=== PATIENT | female | born 1960 | race Caucasian/White ===

== ENCOUNTER 2022-01-20 10:48 | Emergency (ER) | payer MEDICARE, MEDICAID, SELFPAY ==
[2022-01-20 10:58] VITALS: BP 148/70; PULSE 85; RESP 16; TEMP 36.6; O2SAT 96
--- NOTE | 2022-01-20 12:19 | ED.EYEPROB ---
HPI - Eye Problem General Chief complaint: Eye Problems Stated complaint: right eye Time Seen by Provider: 01/20/22 12:19 Source: patient and RN notes reviewed Mode of arrival: ambulatory Limitations: no limitations History of Present Illness HPI Narrative: 61-year-old female presents with concern for right upper eyelid swelling. She reports symptoms started approximately 5 days ago. She reports drainage from the eye. Reports this has been happening to her since she started chemotherapy and she is been treated by her oncologist with ciprofloxacin. Reports ciprofloxacin clears up the problem within several days. She reports her oncologist advised her to see an help desk intern, reports she is unable to get into an help desk intern for several months. MD chief complaint: other (Eyelid swelling) Related Data Home Medications Medication Instructions Recorded Confirmed alprazolam 0.5 mg tablet 0.5 tablet PO TID 01/20/22 01/20/22 aspirin 81 mg capsule 81 mg PO DAILY 01/20/22 01/20/22 atorvastatin 40 mg tablet 40 tablet PO DAILY 01/20/22 01/20/22 ergocalciferol (vitamin D2) 50,000 1 unit PO WEEKLY 01/20/22 01/20/22 unit tablet ferrous sulfate 325 mg (65 mg 325 mg PO DAILY 01/20/22 01/20/22 iron) tablet folic acid 1 mg tablet 1 mg PO DAILY 01/20/22 01/20/22 gabapentin 300 mg capsule 300 cap TID 01/20/22 01/20/22 levothyroxine 75 mcg tablet 75 tablet DAILY 01/20/22 01/20/22 metformin 500 mg tablet 1,000 tablet BID 01/20/22 01/20/22 metoprolol tartrate 25 mg tablet 25 mg BID 01/20/22 01/20/22 nitroglycerin 0.4 mg sublingual 0.4 mg sublingual Q5M PRN Chest 01/20/22 01/20/22 tablet Pain ondansetron HCl 8 mg tablet 8 tablet PRN 01/20/22 01/20/22 polysaccharide iron complex 150 mg 150 mg BID 01/20/22 01/20/22 iron capsule zolpidem 10 mg tablet 10 mg QPM 01/20/22 01/20/22 Allergies Allergy/AdvReac Type Severity Reaction Status Date / Time No Known Allergies Allergy Verified 01/20/22 11:24 Review of Systems Review of Systems: CONSTITUTIONAL: Denies malaise, chills, sweats, or fever. EYES: Denies visual changes. Reports right upper eyelid swelling and redness, drainage ENT: Denies rhinorrhea, congestion, sinus pain, otalgia or sore throat. SKIN: Denies rash or itching. NEUROLOGIC: Denies numbness, weakness, or headache. PSYCHIATRIC: Denies anxiety or depression. All systems reviewed & are unremarkable except as noted in HPI and below PMFSH Comments At time of signature, agree with nursing past medical, surgical, social and family history. There is no relevant family history pertinent to the presenting complaint Exam Narrative: GENERAL: Well-appearing, well-nourished, and in no acute distress. HEAD: Normocephalic, atraumatic. EYES: PERRLA, sclera clear, and EOMI. No nystagmus. Bilateral conjunctivae and sclera clear. Left upper and lower eyelid unremarkable, no periorbital edema noted. Right upper inner eyelid erythematous and edematous, no periorbital edema noted, crusty drainage noted on the eyelids ENT: Nares clear, turbinates pink, no rhinorrhea or epistaxis. Mucous membranes moist. TM pearly melendez with sharp light reflex bilaterally; no tragal tenderness. NECK: Supple. CHEST: No respiratory distress. Speaks in full sentences. HEART: Regular rate and rhythm. SKIN: Warm, dry, no visible rash. NEURO: Alert and oriented x3. PSYCH: Normal mood and affect Course Course Emergency Course: Status ciprofloxacin interaction with ondansetron and alprazolam with patient. She reports she only takes the ondansetron when she is getting procedures done, she reports she is taken ciprofloxacin at least 3 times while she has been taking the alprazolam with no interaction. Patient is aware of diagnosis, understands and agrees to treatment plan. Anticipatory guidance given. Patient agrees to follow-up as directed and is aware of reasons to seek care at the emergency department. Portions of this record may have been created with susannah
== END 2022-01-20 12:36 | disposition home or self-care (01) ==
PROVIDERS: Emergency Provider Nurse Practitioner
DX: H02.841 Edema of right upper eyelid (principal)
CPT/HCPCS: 99213; G0463